=== PATIENT | male | born 1965 | race Caucasian/White ===

== ENCOUNTER → 2016-10-07 | Outpatient (CLI) | payer BC ==
[~2016-10-07] MED LIST: BACITRACIN15 GM TP; COUMADIN10 MG PO
--- NOTE | ~2016-10-07 | US85 ---
[facility] A Service of [facility] & [facility] RADIOLOGY TEXT RESULTS PATIENT: ARASH HICKS LOCATION: CNIV : 69 UNIT #: [id number] AGE: [address]: Nghia Mcintosh MD SEX: M ORDER DR: [id number] [facility] [address] [place], [place] [address] [id number] O MR#: [id number] #: [id number] NAME: ARASH HICKS : 1965 SEX: M STUDY DATE/TIME: 10/07/2016 13:14 UNIT: CNIV ROOM: STUDY DESCRIPTION: [employer] [facility] Attending Physician: Nghia Mcintosh M.D. Referring Physician: Nghia Mcintosh M.D. Ordering Physician: Nghia Mcintosh M.D. Primary Care Physician: Cheri Kee M.D. MEDICAL IMAGING REPORT This report is preliminary unless electronic signature is present EXAM Left lower extremity venous ultrasound HISTORY Prior history of DVT. Left lower extremity pain, groin, thigh x1 week. History of DVT in left lower extremity. Currently taking Coumadin x 20 years. FINDINGS Real-time ultrasonography of the left lower extremity venous structures was performed. Mendoza-scale, color Doppler and Doppler pulse-wave interrogation utilized. No prior studies available for comparison at time of this dictation. The left common femoral vein is patent with evidence of flow. The wall is somewhat thickened. Appearance probably reflects sequelae of remote left common femoral vein DVT. There is diminished flow in the profunda femoris vein with non-compressibility and echogenic material within the vein consistent with acute DVT. The left femoral vein shows absence of flow throughout its course. The vein is non-compressible. It does contain echogenic material and is relatively small in caliber. Some component of the femoral vein appearance may be a reflection of remote DVT. I am concerned that there is probable [id number] DVT in the left femoral vein. The left popliteal vein is non-compressible. It contains echogenic material. Appearance is consistent with acute DVT in the left popliteal vein. The left anterior tibial, posterior tibial and peroneal veins are patent according to the technologist. There is a small amount of thrombus in the most proximal superficial femoral vein at the saphenofemoral junction. This is classified as superficial venous thrombosis. The remainder of the left great saphenous vein is patent. IMPRESSION 1. Findings discussed directly with Dr. Mcintosh at time of this dictation. Per Dr. Mcintosh's instructions, the patient was asked to proceed STS. [facility] A Service of [facility] RADIOLOGY TEXT RESULTS PATIENT: ARASH HICKS LOCATION: [facility] : 69 UNIT #: [id number] AGE: [address]: Nghia Mcintosh MD SEX: M ORDER DR: directly to Dr. Mcintosh's office for further assessment. There is evidence of probable acute on chronic DVT throughout the left femoral vein with absence of flow throughout the left femoral vein, non-compressibility, and echogenic material within the left femoral vein throughout its course. See complete discussion above. Clearly acute appearing DVT in the left popliteal vein. 2. Mural thickening of the left common femoral vein likely reflecting sequelae of remote DVT with recanalization. 3. The left calf veins are patent. 4. Small focus of thrombus within the proximal left great saphenous vein at level of the saphenofemoral junction. This is classified as a small focus of superficial venous thrombosis. Remainder of the left great saphenous vein is patent. Dictated by... Jhon Palacios M.D. THIS IS AN ELECTRONICALLY VERIFIED REPORT Jhon Palacios M.D. at 10/08/2016 5:26 PM Andreina TD: 10/07/2016 20:47 JOB #: [id number] MEDICAL IMAGING REPORT COPY
== END | disposition home or self-care (01) ==
LOC: CNIV 12:40
DX: I82.402 Acute embolism and thrombosis of unspecified deep veins of left lower extremity (principal); I82.812 Embolism and thrombosis of superficial veins of left lower extremity
CPT/HCPCS: 93971